=== PATIENT | female | born 1985 | race Caucasian/White ===

== ENCOUNTER 2019-09-11 17:05 | Emergency (ER) | payer BC, SELFPAY ==
--- NOTE | 2019-09-11 17:12 | ED.SYNCOPE ---
HPI - Syncope General Chief Complaint: Syncope Stated Complaint: fainted Time Seen by Provider: 09/11/19 17:12 Source: patient, EMS and RN notes reviewed Mode of arrival: EMS Limitations: no limitations History of Present Illness HPI narrative: patient was at home. She says that she had been out all day. Today it is extremely hot with the heat warning with real feel temperature close to 100. She has been playing around the pool today. But has taken very little oral fluids in. She told family she was feeling poorly felt like she was going to pass out and then did. She has been nauseated. She denies any alcohol day. MD complaint: felt faint and collapsed Onset (ago): hour(s) (2) Prodromal symptoms: lightheaded and nausea/vomiting Witnessed: Yes - by Bystander Context: during exertion Injuries sustained associated with event: none Current symptoms: lightheaded, nausea and weakness Treatments prior to arrival: IV fluids Related Data Home Medications Medication Instructions Recorded Confirmed norgestimate-ethinyl estradiol tablet 09/11/19 [Tri Femynor] Allergies Allergy/AdvReac Type Severity Reaction Status Date / Time No Known Allergies Allergy Verified 05/22/19 13:14 Review of Systems Constitutional: Constitutional: Reports weakness Eyes: Eyes: Reports no additional eye complaints Cardiovascular: Cardiovascular: Reports no additional cardiovascular complaints Respiratory: Respiratory: Reports no additional respiratory complaints Gastrointestinal: Gastrointestinal: Reports as per HPI Genitourinary: Genitourinary: Reports no additional female genitourinary complaints Musculoskeletal: Musculoskeletal: Reports no additional musculoskeletal complaints Integumentary/Breasts: Skin/Breast: Reports erythema (Sunburn) Neurologic: Reports as per HPI Psychiatric: Psychiatric: Reports no additional psychiatric complaints Endocrine: Endocrine: Reports no additional endocrine complaints Hematologic/Lymphatic: Hematologic/Lymphatic: Reports no additional hematologic/lymphatic complaints Allergic/Immunologic: Allergic/Immunologic: Reports no additional allergic/immunologic complaints [facility] Past Medical History Medical History Anxiety and depression Attention deficit disorder (ADD) in adult Irritable bowel syndrome with both constipation and diarrhea Vitamin D deficiency Social History Social History Social History: Lives with and 2 children, ages 2 and 4. Smoking status: Never smoker Alcohol intake: current Exam Const: General: healthy appearing, no acute distress and alert Nutritional Appearance: well nourished Orientation/consciousness: patient oriented x3 Other: Female nurse in room during examination. HENMT: Head: normal to inspection Ears: external ears normal General nose exam: Normal external nose present Face and sinus: normal facial exam Mouth: Yes lip normal Eyes: Conjunctivae: conjunctivae normal Pupils: Equal, round and reactive pupils present EOM: EOMs intact bilaterally Neck: Neck: normal visual inspection Resp: Effort & Inspection: normal respiratory effort Auscultation: clear to auscultation bilaterally Cardio: Rate: regular rate Rhythm: regular rhythm GI: Auscultation: normal bowel sounds Back/Spine/Pelvis: Back: no CVA tenderness Skin: Other: Sunburn 1st degree to exposed areas of body Neuro: General: patient oriented x3 and moves all extremities Speech: normal speech Extrem: General: normal to inspection and no clubbing, cyanosis or edema Psych: Appearance: grossly normal and well kempt Mental Status: mental status grossly normal Affect: normal affect Attitude: cooperative Thought content: Yes Normal thought content present Course Vital Signs Vital signs: Vital Signs Temperature 36.7 C 09/11/19 17:14 Pulse Rate 77 07/06
[2019-09-11 17:14] VITALS: BP 116/84; PULSE 77; RESP 16; TEMP 36.7; O2SAT 100
[2019-09-11] MEDS: SODIUM CHLORIDE 0.9% IV 1,000 ML 999 ML IV CONT (17:20)
[2019-09-11 17:30] LABS: Basophils Absolute Auto 0.04 K/mm3 (0.00-0.10); Basophils Percent Auto 0.4 % (0.0-1.0); Eosinophils Absolute Auto 0.12 K/mm3 (0.02-0.50); Eosinophils Percent Auto 1.3 % (1.0-6.0); Hematocrit 35.6 % (35.0-49.0); Hemoglobin 12.3 g/dL (12.0-15.0); Immature Granulocyte Absolute 0.03 K/mm3 (0.00-0.00); Immature Granulocyte Percent A 0.3 % (0.0-0.0); Lymphocytes Absolute Auto 2.67 K/mm3 (1.10-4.50); Lymphocytes Percent Auto 28.2 % (18.0-42.0); Mean Corpuscular HGB Conc 34.6 g/dL (32.0-36.0); Mean Corpuscular Hemoglobin 30.8 pg (27.0-31.0); Mean Corpuscular Volume 89.2 fL (78.0-102.0); Monocytes Absolute Auto 0.61 K/mm3 (0.10-0.90); Monocytes Percent Auto 6.4 % (2.0-11.0); Neutrophils Percent Auto 63.4 % (50.0-70.0); Platelet Count Result 235 K/mm3 (150-420); Red Blood Count 3.99 M/mm3 (4.20-5.40); Red Cell Distribution Width 11.9 % (11.6-14.4); White Blood Count 9.5 K/mm3 (4.8-10.8)
[2019-09-11 17:32] LABS: Appearance Urine Clear (Clear); Bilirubin Urine Negative (Negative); Color Urine Yellow (Yellow); Glucose Urine UA Negative (Negative); Ketones Urine Trace (Negative); Leukocyte Esterase Ur Negative LEU/UL (Negative); Nitrate Urine Negative (Negative); Protein Urine Negative (Negative); Specific Grav Ur >= 1.030 (1.010-1.020); Urobilinogen Urine 0.2 mg/dL (0.2-1.0); pH Urine 5.5 (5.0-8.0)
[2019-09-11 17:37] LABS: Add Urine Microscopic? YES; Bacteria Urine Trace /hpf; Blood Urine Trace-Intact (Negative); RBC Urine None seen /hpf (0-2); Squamous Epithelial Cell Urine Few /hpf (Few); WBC Urine None seen /hpf (0-3)
[2019-09-11 17:38] LABS: Mucus Urine Few /lpf
[2019-09-11 17:47] LABS: Alanine Aminotransferase 15 U/L (14-59); Alkaline Phosphatase 67 U/L (46-116); Anion Gap 7.9 mmol/L (7-16); Aspartate Amino Transferase 13 U/L (15-37); Bilirubin,Total 0.8 mg/dL (0.00-1.00); Blood Urea Nitrogen 14 mg/dL (7-18); Calcium 7.7 mg/dL (8.5-10.1); Carbon Dioxide 30 mmol/L (21-32); Chloride 106 mmol/L (98-108); Estimated Glomerular Filt Rate > 60; Glucose 86 mg/dL (70-99); Magnesium 1.8 mg/dL (1.8-2.4); Osmolality Calculated 289 mOsm/kg (285-295); Potassium 3.9 mmol/L (3.5-5.1); Sodium 140 mmol/L (136-145); Total Protein 6.2 g/dL (6.4-8.2)
[2019-09-11 18:35] VITALS: BP 116/74; PULSE 74; O2SAT 99
== END 2019-09-11 18:35 | disposition home or self-care (01) ==
PROVIDERS: Emergency Provider Emergency Medicine
DX: T67.5XXA Heat exhaustion, unspecified, initial encounter (principal)
CPT/HCPCS: 36415; 80053; 81001; 83735; 85025; 96360; 99283; J7030

== ENCOUNTER 2022-02-07 08:53 | Emergency (ER) | payer BC, SELFPAY ==
--- NOTE | 2022-02-07 08:54 | ED.URI ---
HPI - URI/Sore Throat General Chief Complaint: Upper Respiratory Infection Stated Complaint: throat fever aches headaches Time Seen by Provider: 02/07/22 08:54 Source: patient and RN notes reviewed History of Present Illness HPI Narrative: patient is a 36-year-old female who presents to urgent care with complaints of sore throat, body aches, headache, chills, fever. Patient states that it started yesterday. Denies any ill exposures at home. Patient has been taking Advil. No other acute complaints. No acute distress noted. Patient aware of the plan of care. Some parts of this dictation were generated by voice recognition software and may contain typographical and/or grammatical inaccuracies. Related Data Home Medications Medication Instructions Recorded Confirmed norgestimate-ethinyl estradiol tablet 09/11/19 12/23/21 0.18 mg/0.215mg/0.25mg-35 mcg(28)tablet (Tri Femynor) Allergies Allergy/AdvReac Type Severity Reaction Status Date / Time adhesive Allergy Unknown RASH Verified 02/07/22 09:18 Review of Systems Review of Systems: CONSTITUTIONAL: Reports of fever, chills EYES: Denies visual changes, redness, or discharge. ENT: Denies rhinorrhea, congestion, otalgia. Reports of sore throat CARDIOVASCULAR: Denies chest pain, palpitations, or edema. RESPIRATORY: Denies cough or dyspnea. GASTROINTESTINAL: Denies abdominal pain, nausea, vomiting, or diarrhea. GENITOURINARY: Denies dysuria or hematuria. SKIN: Denies rash or itching. MUSCULOSKELETAL: Denies back pain, joint pain. Reports body aches NEUROLOGIC: Denies headache, numbness, or weakness. All other systems reviewed are negative, except as documented in HPI. [facility] Past Medical History Medical History Anxiety and depression Attention deficit disorder (ADD) in adult Gestational diabetes Irritable bowel syndrome with both constipation and diarrhea Vitamin D deficiency Surgical History Surgical History Hx of appendectomy (~2017) Hx of section (~2016) Hx of section (~2018) Social History Social History Social History: Lives with and 2 children, ages 2 and 4. Smoking status: Never smoker Alcohol intake: current Alcohol use details: rarely Substance use: never Substance use type: does not use Gender identity (if verbalized by the patient): Female Sexual Orientation (if Verbalized by the Patient): Straight or Heterosexual Agree to blood products: Yes Comments At the time of my signature, I reviewed and agree with the nursing past medical, surgical, social, and family history. There is no relevant family history pertinent to the patient complaint. Exam Narrative: GENERAL: This is a well-nourished, well-developed patient. Appears fatigued HEAD: normocephalic, atraumatic. EYES: PERRL. Sclera clear/white. Vision is grossly intact. EARS: External ears normal, auditory canals clear and without drainage, TMs normal without perforation. Hearing grossly intact. NOSE: External nose normal with no obvious nasal discharge, nares without redness, clear rhinorrhea THROAT: Mucous membranes moist, mild erythema to posterior oropharynx with moderate postnasal drainage. Mild bilateral erythema neck tonsils with slight edema NECK: Neck supple, non-tender mild bilateral submandibular lymphadenopathy CARDIOVASCULAR: Regular rate and rhythm without murmurs, gallops, or rubs. RESPIRATORY: Clear to auscultation. Breath sounds equal bilaterally. No wheezes, rales, or rhonchi. SKIN: warm, intact with no suspicious lesions or rash, good texture and turgor. NEURO: awake, alert, and oriented to person, place and time. There were no obvious focal neurologic abnormalities. EXTREMITIES: No clubbing, cyanosis, or edema. Course Course Level of Care: [facility] Care Visit Vi
[2022-02-07 09:17] VITALS: BP 114/67; PULSE 99; RESP 18; TEMP 37; O2SAT 98
== END 2022-02-07 09:39 | disposition home or self-care (01) ==
PROVIDERS: Emergency Provider Nurse Practitioner Family; PCP Nurse Practitioner
DX: J02.9 Acute pharyngitis, unspecified (principal); F98.8 Other specified behavioral and emotional disorders with onset usually occurring in childhood and adolescence; F41.9 Anxiety disorder, unspecified; F32.A Depression, unspecified
CPT/HCPCS: 87081; 87147; 99213; G0463

== ENCOUNTER 2022-06-28 19:49 | Emergency (ER) | payer BC, SELFPAY ==
--- NOTE | ~2022-06-28 | CT_ITS ---
CT of the Abdomen and Pelvis: Indication: Abdominal pain Technique: 2.5 mm axial scans were obtained through the abdomen and pelvis following intravenous adm inistration of 100 cc of Omnipaque 350. Dose reduction technique was used on this scan by utilizing a utomated exposure control and iterative reconstruction technique. The dose-length product (DLP) was 5 96.36 mGy-cm. COMPARISON: 05/21/2016 Findings: Scans through the lung bases are unremarkable. The liver, spleen, pancreas, adrenals and kidneys are within normal limits. Multiple gallstones are p resent. No evidence of aortic aneurysm. No lymphadenopathy. No bowel obstruction or bowel wall thickening. There is no evidence to suggest acute appendicitis. Images through the pelvis were performed. Urinary bladder unremarkable. Probable small uterine fibroi ds present. No ascites. Impression: Cholelithiasis. If there is clinical concern for acute cholecystitis, then HIDA scan is recommended f or further evaluation. Small uterine fibroids. Reviewed, dictated and finalized at location . Impression: Cholelithiasis. If there is clinical concern for acute cholecystitis, then HIDA scan is recommended for further evaluation. Small uterine fibroids.
[2022-06-28 19:53] VITALS: BP 153/103; PULSE 73; RESP 16; TEMP 36.1; O2SAT 100
[2022-06-28 20:40] VITALS: BP 128/84; PULSE 72; RESP 14; O2SAT 100
[2022-06-28 20:44] LABS: Basophils Percent Auto 0.5 % (0.2-1.2); Eosinophils Absolute Auto 0.2 K/mm3 (0-0.3); Eosinophils Percent Auto 2.5 % (0-4.4); Hematocrit 38.2 % (37.0-47.0); Hemoglobin 12.6 g/dL (12.0-15.0); Immature Granulocyte Absolute 0.02 K/mm3 (0.00-0.031); Immature Granulocyte Percent A 0.3 % (0-0.5); Lymphocytes Absolute Auto 2.98 K/mm3 (0.9-3.2); Lymphocytes Percent Auto 37.3 % (18.3-44.2); Mean Corpuscular Hemoglobin 29.2 pg (26-34); Mean Corpuscular Volume 88.6 fl (80-100); Mean Platelet Volume 9.1 fl (7.4-10.4); Monocytes Absolute Auto 0.7 K/mm3 (0.1-0.6); Monocytes Percent Auto 8.6 % (2.6-8.5); Neutrophils Absolute Auto 4.1 K/mm3 (1.3-6.7); Neutrophils Percent Auto 50.8 % (45.5-73.1); Platelet Count Result 256 k/mm3 (150-375); Red Blood Count 4.31 M/mm3 (4.2-5.4)
--- NOTE | 2022-06-28 20:48 | ED.ABDPAIN ---
HPI - Abdominal Pain General Chief Complaint: Abdominal Pain <Maxx Interiano MD - Last Filed: 07/02/22 07:12> Stated Complaint: gallbladder attack <Maxx Interiano MD - Last Filed: 07/02/22 07:12> Time Seen by Provider: 06/28/22 20:13 <Maxx Interiano MD - Last Filed: 07/02/22 07:12> History of Present Illness HPI narrative: 36-year-old female with history of cholelithiasis presented the emergency department for evaluation of worsening right upper quadrant and epigastric pain. Patient states that back in 2017 she was diagnosed with cholelithiasis and was supposed to have her gallbladder out. Prior to having her gallbladder out patient did have a acute appendicitis and had an appendectomy. Patient states she did not have significant right upper quadrant pain after having the appendectomy. Patient reports over the last 3 weeks she has had 4 episodes of epigastric and right upper quadrant pain. Patient states symptoms are typically about 5 hours in length but then did resolve after treatment with home medications. Patient reports that this evening approximately 5 PM she had 10 sounds epigastric right upper quadrant pain that does radiate to her back. Patient does have associated nausea vomiting. Patient denies any constipation or diarrhea with this. Patient does have a prior history of C-sections x2 as well. <Maxx Interiano MD - Last Filed: 07/02/22 07:12> Related Data Home Medications: Home Medications Medication Instructions Recorded Confirmed norgestimate-ethinyl estradiol tablet 09/11/19 06/26/22 0.18 mg/0.215mg/0.25mg-35 mcg(28)tablet (Tri Femynor) fluoxetine 20 mg capsule 20 mg PO DAILY 06/26/22 06/26/22 <Maxx Interiano MD - Last Filed: 07/02/22 07:12> Allergies/Adverse Reactions: Allergies Allergy/AdvReac Type Severity Reaction Status Date / Time adhesive Allergy Unknown RASH Verified 06/28/22 20:39 <Maxx Interiano MD - Last Filed: 07/02/22 07:12> Review of Systems Review of Systems: All systems reviewed & are unremarkable except as noted in HPI and below <Maxx Interiano MD - Last Filed: 07/02/22 07:12> [facility] Past Medical History Medical History: Medical History Anxiety and depression Attention deficit disorder (ADD) in adult Gestational diabetes Irritable bowel syndrome with both constipation and diarrhea Vitamin D deficiency <Maxx Interiano MD - Last Filed: 07/02/22 07:12> Surgical History Surgical History: Surgical History Hx of appendectomy (~2017) Hx of section (~2016) Hx of section (~2018) <Maxx Interiano MD - Last Filed: 07/02/22 07:12> Social History Social History: Social History Social History: Lives with and 2 children, ages 2 and 4. Smoking status: Never smoker Alcohol intake: current Alcohol use details: rarely Substance use: never Substance use type: does not use Lack of Transportation: No Lack of Food: Never True Current Housing: I Have Housing Concerned About Future Housing: No Difficulty Paying Gas/Electric Bills: No Difficulty Paying for Meds: No Currently Unemployed: No Education: Associate Degree Difficulty w/ Childcare or Family Care: No Living arrangements: with family Occupation/Education: occupation Gender identity (if verbalized by the patient): Female Sexual Orientation (if Verbalized by the Patient): Straight or Heterosexual Agree to blood products: Yes <Maxx Interiano MD - Last Filed: 07/02/22 07:12> Exam Narrative: APPEARANCE: Well appearing, no pain, no distress, well-nourished. HEAD: normocephalic, atraumatic. EYES: PERRLA/EOMI, conjunctivae clear. NOSE: Normal no drainage NECK: Supple. No adenopathy, no masses. RESPIRATORY: Airway patent, respirations
[2022-06-28 20:55] LABS: Alanine Aminotransferase 15 U/L (6-35); Albumin Level 4.1 g/dL (3.5-5.1); Alkaline Phosphatase 65 U/L (38-126); Anion Gap 7 mmol/L (8-16); Aspartate Amino Transferase 23 U/L (14-36); Bilirubin,Total 0.8 mg/dL (0.2-1.3); Blood Urea Nitrogen 13 mg/dL (7-17); Calcium 8.9 mg/dL (8.4-10.2); Carbon Dioxide 27 mmol/L (22-30); Chloride 102 mmol/L (98-107); Estimated CRCL calculation 93 ml/min; Estimated Glomerular Filt Rate > 60; Glucose 107 mg/dL (65-110); Lipase 39 U/L (23-300); Potassium 3.6 mmol/L (3.4-5.0); Sodium 136 mmol/L (137-145)
[2022-06-28 20:56] LABS: Lactic Acid Reflex 0.8 mmol/L (0.7-2.0)
[2022-06-28] MEDS: HYDROmorphone HCL INJ (*CRX) 1 MG/ML SYR IV PUSH ×2 (21:17→22:25)
[2022-06-28] MEDS: ONDANSETRON INJ 4 MG/2 ML VIAL IV PUSH (21:17)
[2022-06-28] MEDS: SODIUM CHLORIDE 0.9% IV 1,000 ML 999 ML IV CONT (21:18)
[2022-06-28 21:20] VITALS: BP 124/82; PULSE 70; RESP 17; O2SAT 100
[2022-06-28 21:43] LABS: Appearance Urine Clear (Clear); Bilirubin Urine Negative (Negative); Blood Urine Negative (Negative); Color Urine Yellow (Yellow); Glucose Urine UA Negative (Negative); Ketones Urine Negative (Negative); Leukocyte Esterase Ur Negative LEU/UL (Negative); Nitrate Urine Negative (Negative); Protein Urine Negative (Negative); Specific Grav Ur 1.023 (1.001-1.035); Urobilinogen Urine 0.2 mg/dL (<2.0); pH Urine 5.5 (5.0-9.0)
[2022-06-28 21:45] LABS: Add Urine Microscopic? NO
[2022-06-28 22:27] VITALS: BP 126/80; PULSE 93; RESP 14; O2SAT 98
[2022-06-28] MEDS: KETOROLAC 15 MG/ML VIAL (*BKC) IV PUSH (23:16)
[2022-06-28 23:24] VITALS: BP 124/68; PULSE 98; RESP 14; O2SAT 99
[2022-06-29 00:56] VITALS: BP 118/76; PULSE 90; RESP 15; O2SAT 99
== END 2022-06-29 00:59 | disposition home or self-care (01) ==
PROVIDERS: Emergency Medicine; Emergency Provider Emergency Medicine; PCP Nurse Practitioner
DX: K80.20 Calculus of gallbladder without cholecystitis without obstruction (principal)
CPT/HCPCS: 36415; 74177; 80053; 81003; 81025; 83605; 83690; 85025; 96361; 96365; 96375; 96376; 99284; J0131; J1170; J1885; J2405; J7030; Q9967

== ENCOUNTER 2022-07-06 19:05 | Emergency (ER) | payer BC, SELFPAY ==
[2022-07-06 19:37] VITALS: BP 132/87; PULSE 80; RESP 16; TEMP 36.6; O2SAT 100
[2022-07-06 22:38] LABS: Basophils Absolute Auto 0.1 K/mm3 (0.0-0.1); Basophils Percent Auto 0.9 % (0.2-1.2); Eosinophils Absolute Auto 0.3 K/mm3 (0-0.3); Eosinophils Percent Auto 3.3 % (0-4.4); Hematocrit 38.5 % (37.0-47.0); Hemoglobin 12.9 g/dL (12.0-15.0); Immature Granulocyte Absolute 0.02 K/mm3 (0.00-0.031); Immature Granulocyte Percent A 0.3 % (0-0.5); Lymphocytes Absolute Auto 3.38 K/mm3 (0.9-3.2); Lymphocytes Percent Auto 42.4 % (18.3-44.2); Mean Corpuscular HGB Conc 33.5 g/dl (32-36); Mean Corpuscular Hemoglobin 29.3 pg (26-34); Mean Corpuscular Volume 87.5 fl (80-100); Mean Platelet Volume 9.1 fl (7.4-10.4); Monocytes Absolute Auto 0.7 K/mm3 (0.1-0.6); Monocytes Percent Auto 8.5 % (2.6-8.5); Neutrophils Absolute Auto 3.6 K/mm3 (1.3-6.7); Neutrophils Percent Auto 44.6 % (45.5-73.1); Platelet Count Result 303 k/mm3 (150-375)
[2022-07-06 22:41] LABS: Appearance Urine Clear (Clear); Bilirubin Urine Negative (Negative); Blood Urine Negative (Negative); Color Urine Yellow (Yellow); Glucose Urine UA Negative (Negative); Ketones Urine Negative (Negative); Leukocyte Esterase Ur Negative LEU/UL (Negative); Nitrate Urine Negative (Negative); Protein Urine Negative (Negative); Specific Grav Ur 1.015 (1.001-1.035); Urobilinogen Urine 0.2 mg/dL (<2.0); pH Urine 5.5 (5.0-9.0)
[2022-07-06 22:47] LABS: Alanine Aminotransferase 24 U/L (6-35); Albumin Level 4.3 g/dL (3.5-5.1); Alkaline Phosphatase 82 U/L (38-126); Anion Gap 6 mmol/L (8-16); Aspartate Amino Transferase 27 U/L (14-36); Bilirubin,Total 1.3 mg/dL (0.2-1.3); Blood Urea Nitrogen 10 mg/dL (7-17); Carbon Dioxide 28 mmol/L (22-30); Chloride 103 mmol/L (98-107); Estimated CRCL calculation 93 ml/min; Estimated Glomerular Filt Rate > 60; Glucose 88 mg/dL (65-110); Lipase 36 U/L (23-300); Potassium 3.6 mmol/L (3.4-5.0); Sodium 137 mmol/L (137-145)
[2022-07-06 22:59] LABS: Add Urine Microscopic? NO
[2022-07-07] VITALS (19 sets, daily range): BP systolic 116–126; BP diastolic 81–95; PULSE 70; RESP 18; TEMP 36.6; O2SAT 98–100
[2022-07-07] MEDS: HYDROcodone/acetaminophen (*CRX) 5-325 MG TABLET 1 TAB PO (00:25)
[2022-07-07] MEDS: ONDANSETRON INJ 4 MG/2 ML VIAL IV PUSH (00:25)
[2022-07-07] MEDS: IBUPROFEN 400 MG TABLET 800 MG PO (00:25)
[2022-07-07] MEDS: SODIUM CHLORIDE 0.9% IV 1,000 ML 999 ML IV CONT (00:25)
--- NOTE | 2022-07-07 00:52 | ED.GENADULT ---
HPI - General Adult General Chief complaint: Abdominal Pain Stated complaint: I'm having a gall bladder attack Time Seen by Provider: 07/07/22 00:03 History of Present Illness HPI narrative: A 36-year-old female with history of biliary colic presenting with right upper quadrant abdominal pain. Patient was seen here in our emergency department On June 28. She was diagnosed with biliary colic and discharged with symptomatic treatment. she was discharged with Motrin Tylenol and Aniwa for breakthrough pain. Patient had a gallbladder attack today and take Motrin and Tylenol. This did not relieve her pain. She did not take the Aniwa because she thought it was for nausea. Patient denies fever, chills, nausea, vomiting chest pain difficulty breathing. She has an appointment to see surgery on the . Related Data Home Medications Medication Instructions Recorded Confirmed norgestimate-ethinyl estradiol tablet 09/11/19 06/26/22 0.18 mg/0.215mg/0.25mg-35 mcg(28)tablet (Tri Femynor) fluoxetine 20 mg capsule 20 mg PO DAILY 06/26/22 06/26/22 Allergies Allergy/AdvReac Type Severity Reaction Status Date / Time adhesive Allergy Unknown RASH Verified 07/06/22 19:06 [facility] Past Medical History Medical History Anxiety and depression Attention deficit disorder (ADD) in adult Gestational diabetes Irritable bowel syndrome with both constipation and diarrhea Vitamin D deficiency Surgical History Surgical History Hx of appendectomy (~2017) Hx of section (~2016) Hx of section (~2018) Social History Social History Social History: Lives with and 2 children, ages 2 and 4. Smoking status: Never smoker Alcohol intake: current Alcohol use details: rarely Substance use: never Substance use type: does not use Lack of Transportation: No Lack of Food: Never True Current Housing: I Have Housing Concerned About Future Housing: No Difficulty Paying Gas/Electric Bills: No Difficulty Paying for Meds: No Currently Unemployed: No Education: Associate Degree Difficulty w/ Childcare or Family Care: No Living arrangements: with family Occupation/Education: occupation Gender identity (if verbalized by the patient): Female Sexual Orientation (if Verbalized by the Patient): Straight or Heterosexual Agree to blood products: Yes Exam Narrative: APPEARANCE: No apparent distress. Head: atraumatic. EYES: EOMI, NOSE: Atraumatic NECK: Trachea midline RESPIRATORY: No increased rate of breathing CARDIOVASCULAR: RRR, ABDOMINAL: mild tenderness in the right upper quadrant epigastric area. No guarding no rebound MUSCULOSKELETAl: No obvious deformities NEURO: Alert. Moving 4/4 extremities SKIN:: Warm, dry. Normal color PSYCHIATRIC: Normal affect Course Vital Signs Vital signs: Vital Signs Temperature 97.9 F 07/06/22 19:37 Pulse Rate 80 07/06/22 19:37 Respiratory Rate 16 07/06/22 19:37 Blood Pressure 132/87 07/06/22 19:37 Pulse Oximetry 100 07/06/22 19:37 Oxygen Delivery Room Air 07/06/22 19:37 Temperature 97.9 F 07/06/22 19:37 Pulse Rate 80 07/06/22 19:37 Respiratory Rate 16 07/06/22 19:37 Blood Pressure 132/87 07/06/22 19:37 Pulse Oximetry 100 07/06/22 19:37 Oxygen Delivery Room Air 07/06/22 19:37 Medical Decision Making MDM Narrative Medical decision making narrative: -Presentation: 36-year-old female presenting with biliary colic. She did not take her prescribed Aniwa because she misunderstood its use. Lab work, symptomatic treatment will be provided. if the patient's pain is controlled she will be discharged to follow-up with her surgeon at the scheduled appointment. -DDX includes but is not limited to: Biliary colic, cholecystitis -Co-mo
[2022-07-07] MEDS: ACETAMINOPHEN 325 MG TABLET 650 MG PO (01:20)
[2022-07-07] MEDS: FAMOTIDINE 20 MG/2 ML VIAL IV PUSH (01:57)
[2022-07-07] MEDS: HYDROmorphone HCL INJ (*CRX) 1 MG/ML SYR 0.5 MG IV PUSH (02:23)
== END 2022-07-07 02:24 | disposition home or self-care (01) ==
PROVIDERS: Emergency Provider Emergency Medicine; PCP Nurse Practitioner
DX: K80.50 Calculus of bile duct without cholangitis or cholecystitis without obstruction (principal); K58.2 Mixed irritable bowel syndrome; E55.9 Vitamin D deficiency, unspecified; F32.A Depression, unspecified; F41.9 Anxiety disorder, unspecified; F98.8 Other specified behavioral and emotional disorders with onset usually occurring in childhood and adolescence
CPT/HCPCS: 36415; 80053; 81003; 81025; 83690; 85025; 96361; 96374; 96375; 99284; A9270; J1170; J2405; J7030

== ENCOUNTER 2022-07-28 09:21 | Outpatient (CLI) | payer BC, SELFPAY ==
[2022-07-28 10:30] LABS: Amylase 53 U/L (30-110)
== END 2022-07-28 09:22 | disposition home or self-care (01) ==
LOC: ANHSURGERY 09:31
PROVIDERS: PCP Nurse Practitioner; Visit Provider Surgery
DX: K80.10 Calculus of gallbladder with chronic cholecystitis without obstruction (principal); Z01.818 Encounter for other preprocedural examination
CPT/HCPCS: 36415; 82150; 86850; 86900; 86901

== ENCOUNTER 2022-07-31 02:47 | Day surgery (SDC) | payer BC, SELFPAY ==
[2022-07-22 13:23] VITALS: BMI 27.4
--- NOTE | 2022-07-22 13:27 | PC.NURSE ---
Report to the Outpatient Waiting Room, entrance under the green pavilion located off [facility], at time 11:00 on date 07/31/22. Planned Procedure Time: 1:00. Time changes happen often and if your time is changed the preop area will call you the afternoon before. - You and your visitor will be asked to self-screen and do not enter if you have any COVID symptoms. - A mask is optional within the hospital at this time. Patients may have clear liquids (water, carbonated beverages, clear teas, apple juice) until 3 hours prior to surgery (10:00) with a maximum of 20 ounces. - No food from midnight until time of surgery Take the following medications with a SIP of water the morning of surgery: FLUOXETINE, PAIN PILL IF NEEDED DO NOT STOP ANY OF YOUR OTHER PRESCRIPTION MEDICATIONS PRIOR TO SURGERY EXCEPT THE FOLLOWING Medications to discontinue per physician: N/A Date to take last dose: N/A Please no make-up, nail qatari, hairspray, perfume, deodorant, or body powder the day of surgery. No jewelry (including any body piercings) or valuables the day of surgery, leave them at home. Please take a shower or bath the night before, or the morning of, surgery with an antibacterial soap (HIBICLENS). Wear comfortable, loose fitting clothing. - Jewelry must be removed prior to entering the operating room. Rings and piercings that are not removed may be cut off. - The hospital will not accept responsibility for valuables. - Please leave all valuables, including medications, at home the day of surgery. If you are going home after surgery, a licensed company tanker truck driver must drive you home. - NO public transportation without another adult if you receive anesthesia. - We recommend that an adult stay with you for 24 hours following discharge. - We also recommend that you do not drive, make important decision, drink alcoholic beverages, or take any drugs that were not prescribed by your health care provider for at least 24 hours after your discharge time. Follow any additional instructions given to you from your surgeon. If you or anyone in your household have experienced Covid symptoms in the past week, please notify your surgeon or the nurse liaison at the phone number below for possible testing. Telephone instructions given to PT - DA ISABEL and asked if any additional questions and then verbalized understanding. Patient advised to call surgeon office or pre surgery nurse liaison [phone] if any additional questions.
[2022-07-31] VITALS (16 sets, daily range): BP systolic 100–174; BP diastolic 61–115; PULSE 71–154; RESP 12–22; TEMP 36.1–36.6; O2SAT 94–100
[2022-07-31] MEDS: ACETAMINOPHEN 500 MG TABLET 1000 MG PO (06:45)
[2022-07-31] MEDS: KETOROLAC 15 MG/ML VIAL (*BKC) IV PUSH (06:45)
[2022-07-31] MEDS: LACTATED RINGERS 1,000 ML 30 ML IV CONT ×2 (06:45→09:48)
--- NOTE | 2022-07-31 06:46 | WPDANESEPPF ---
Anes - Initial Pre Proc Eval Procedure: Operation Date: 07/31/22 07:30 Proposed Procedures p Laparoscopic Cholecystectomy - Maria A Bauman MD Date/Time: 07/31/22 06:46 Surgeon: Maria A Bauman MD Pre Op Diagnosis: cholecystitis with cholelithiasis Patient Data Age: 36 Gender: F Height: 1.6 m Weight: 70.3 kg Allergies Allergy/AdvReac Type Severity Reaction Status Date / Time adhesive Allergy Unknown RASH Verified 07/22/22 13:21 Home Medications Medication Instructions Recorded Confirmed Type norgestimate-ethinyl estradiol 1 tablet PO DAILY 09/11/19 07/22/22 History 0.18 mg/0.215mg/0.25mg-35 mcg(28)tablet (Tri Femynor) fluoxetine 20 mg capsule 20 mg PO DAILY 06/26/22 07/22/22 History acetaminophen 500 mg tablet 1,000 mg PO TID PRN ritu 7 days #42 06/29/22 07/22/22 Rx tabs ibuprofen 800 mg tablet 800 mg PO TID PRN pain 7 days #21 06/29/22 07/22/22 Rx tabs ondansetron 4 mg disintegrating 4 mg PO Q8H PRN nausea and 06/29/22 07/22/22 Rx tablet vomiting #30 tabs dextroamphetamine-amphetamine ER 30 mg PO DAILY #30 caps 06/30/22 07/22/22 Rx 30 mg 24hr capsule,extend release (Adderall XR) hydrocodone 7.5 mg-acetaminophen 1 tablet PO Q4H PRN pain #20 tabs 07/08/22 07/22/22 Rx 325 mg tablet Patient hx anesthesia problems: none Family hx anesthesia problems: none Results Review: All pre-operative results and documents have been reviewed as part of the pre-operative evaluation. [facility] Past Medical History Medical History Anxiety and depression Attention deficit disorder (ADD) in adult Gestational diabetes Irritable bowel syndrome with both constipation and diarrhea Vitamin D deficiency Surgical History Surgical History Hx of appendectomy (~2017) Hx of section (~2015) x2 2015, 2017 Family History Family History Father Cerebrovascular accident Diabetes mellitus Social History Social History Social History: Lives with and 2 children, ages 2 and 4. 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[employer] Gender identity (if verbalized by the patient): Female Sexual Orientation (if Verbalized by the Patient): Straight or Heterosexual Spiritual care concerns: No Agree to blood products: Yes Anes - Eval Final PreProcedure Day of Procedure 07/31/22 06:46 Patient weight: overweight Heart: regular rate and rhythm Lungs: clear to auscultation Airway: Mallampati scale class II Neurological: alert and oriented Last oral intake: >/= 8 hours ASA classification: II Emergent: no Anesthetic plan: proceed Anesthesia type and monitoring: general ETT and standard monitoring Results Review: All pre-operative results and documents have been reviewed as part of the pre-operative evaluation. Informed Consent: The patient's anesthetic plan and its attendant risks and benefits were discussed with the patient/family/POA. Questions were solicited and answers provided to the satisfaction of the patient/family/POA.
--- NOTE | 2022-07-31 07:16 | WPDHPUPDATE1 ---
History and Physical Update Update Date/Time: 07/31/22 07:16 History and Physical has been reviewed, including an updated exam of the patient. There are NO changes in the patient's condition. Risks, benefits, and alternatives have been discussed and questions answered. Patient agrees to proceed with procedure.
[2022-07-31] MEDS: ceFAZolin 2 GM/D5W 50 ML 2 GM/50 ML BAG IVPB (07:32)
[2022-07-31] MEDS: BUPIVACAINE/EPINEPHRINE 0.5% 50 ML VIAL 30 ML INFILTRATE (08:01)
--- NOTE | 2022-07-31 08:36 | P.OP_ITS ---
Procedure Note - Detailed Date of Procedure 07/31/22 Pre-op Diagnosis cholecystitis with cholelithiasis Post-op Diagnosis Same Procedure Performed Laparoscopic cholecystectomy Surgeon Maria A Bauman MD Anesthesia General Indications 36-year-old female presented to the office complaining of postprandial right up per quadrant abdominal pain associated with nausea and vomiting. Workup including imaging significant for cholecystitis, cholelithiasis. Findings Cholecystitis with cholelithiasis Description of Procedure The patient was taken to the operating room placed in the supine position. After adequate induction of general anesthesia, the patient was prepped and draped in normal sterile fashion. A time-out was then performed to verify the patient's identity as well as the procedure being performed. I then made a 5 mm incision in the infraumbilical region. Through this, a Veress needle was placed into the peritoneal cavity and CO2 gas was then insufflated. After adequate pneumoperitoneum was achieved, the Veress needle was removed and a 5 mm optiview trocar was placed through this incision under direct visualization. I then placed the laparoscope through this trocar site and under direct visualization placed a further 12 mm subxiphoid port as well as 2 additional 5 mm ports in the right upper abdomen. The gallbladder was then identified and was noted to be moderately inflamed, distended, and full of gallstones. I was able to place a grasper at the dome of the gallbladder and this was retracted anterior and cephalad up over the liver. A 2nd retractor was then placed at the infundibulum and retracted laterally, this allowed visualization of the triangle of Calot. I then was able to visualize the cystic duct in its entirety from its proximal insertion into the gallbladder, to its distal junction with the common hepatic/common bile duct junction. At this point, I carefully skeletonized the proximal cystic duct with the [place] dissector. I then clipped and transected the proximal cystic duct. Next I visualized the cystic artery. Again the artery was skeletonized, clipped, and transected. I then used the Bovie cautery to take down the peritoneal attachments of the gallbladder off the liver bed. Once the gallbladder specimen was completely detached, an endo-pouch was placed through the 12 mm port site. I then placed the gallbladder specimen into the Endo pouch and removed the endo-pouch from the 12 mm port site. The specimen will now be sent to pathology for further review. I then copiously irrigated the right upper quadrant. Some mild oozing was noted in the liver bed and this was controlled with the bovie cautery. Hemostasis was noted in the liver bed, the clips were noted to be in good position on both the cystic duct stump and the cystic artery stump. No other pathology was noted in the right upper quadrant. I then moved the laparoscope to the subxiphoid port. No iatrogenic injury or other pathology was noted in the lower abdomen. I then closed the 12 mm trocar site under direct visualization using the Butch cone and 0 Vicryl suture. At this point, the abdomen was desufflated and all ports removed. All port sites were then closed with 4.O Monocryl subcuticular sutures. Dermabond was placed on each incision. The patient tolerated the procedure well, was extubated in the operating room postoperative and will be transferred to the recovery room in stable condition Estimated Blood Loss 5 Drains No Packing No Pathology Yes Complications No immediate complications Condition Stable Disposition PACU [facility] Billing Surgery - Charge Forward: Surgery Billing
[2022-07-31] MEDS: MEPERIDINE HCL INJ (*CRX) 50 MG/ML AMPUL 25 MG IV PUSH (09:09)
[2022-07-31] MEDS: fentaNYL CITRATE INJ (*CRX) 100 MCG/2 ML VIAL 25 MCG IV PUSH ×8 (09:11→09:52)
[2022-07-31] MEDS: METOPROLOL TARTRATE INJ 5 MG/5 ML VIAL IV PUSH (10:08)
[2022-07-31] MEDS: oxyCODONE HCL (*CRX) 5 MG TAB IR PO (10:44)
[2022-07-31] MEDS: ONDANSETRON INJ 4 MG/2 ML VIAL IV PUSH (10:52)
[2022-07-31] MEDS: HYDROmorphone HCL INJ (*CRX) 1 MG/ML SYR 0.5 MG IV PUSH ×4 (11:26→12:00)
== END 2022-07-31 12:12 | disposition home or self-care (01) ==
PROVIDERS: PCP Nurse Practitioner; Visit Provider Surgery
PROC: 0FT44ZZ Resection of Gallbladder, Percutaneous Endoscopic Approach (ICD-10-PCS; CPT 47562; principal; 2022-07-31 07:30)
DX: K80.10 Calculus of gallbladder with chronic cholecystitis without obstruction (principal); F41.8 Other specified anxiety disorders
CPT/HCPCS: 47562; 88304; A9270; J0690; J1100; J1170; J1885; J2175; J2250; J2405; J2704; J3010; J7030; J7120

== ENCOUNTER 2022-11-19 09:45 | Outpatient (CLI) | payer BC, SELFPAY ==
--- NOTE | 2022-11-27 18:15 | WPDHOMESLEEP ---
Sleep Study - Home Unattended Date of Study: 11/19/22 Ordering Provider: KAREN Armstrong Interpreting Provider: Melba Rush MD Home Sleep Study Type: Watch PAT Height: 1.6 m Weight: 71.668 kg Body Mass Index: 28.0 Neck Circumference (inches): 13 [place]: 12 Reason for Sleep Study Hypersomnolence Sleep History Dagmar Carrasco is a 37-year-old woman with excessive daytime sleepiness. She has had night sweats intermittently for the last 2 years. She wakes up during the night and has excessive daytime sleepiness. She Never awakens from sleep short of breath. She never wakes at night with heartburn, belching or coughing.??She never snores, never snores loudly enough that others complain. She rarely has trouble sleeping when she has a cold. She never wakes up gasping for breath during the night. She never has breathing problems at night. She frequently sweats excessively at night. She never notices her heart pounding or beating irregularly during the night. She rarely falls asleep during the day. She never falls asleep involuntarily, never falls asleep while driving. She never experiences loss of muscle tone with strong emotion. She never feels paralyzed on waking or falling asleep. She never experiences vivid dreams upon waking or falling asleep. She never feels afraid of going to sleep. She Occasionally has nightmares. She occasional recalls her dreams. She frequently has thoughts racing through her mind. She occasionally feels sad or depressed. She frequently feels anxiety. She never notices parts of her body jerk. She never kicks during the night. She never feels crawling or aching feelings in her legs. She never feels leg pain at night. She never grinds her teeth, and never has morning jaw pain. She never feels bothered by pain during the day, never awakened by pain during the night. She never wakes up feeling stiff in the morning, never wakes feeling sore or achy in the morning. She rarely wakes up with pain in her neck, spine, or joints. She frequently has daytime difficulties at work due to excessive sleepiness. 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 She has frequent fatigue. She has frequent concentration difficulties. Normal bedtime is 8:30 p.m. , usually falling asleep within a few minutes. She typically gets about 8 hours of sleep per night. Her wake time is 4:00 a.m.. She wakes often in the night, between 5 and 10 times during a typical night. These awakenings last only a few minutes each time. These awakenings occur in the middle of the night. She tries to reposition and return to sleep. On weekends she does not wake up as early. Her bedtime awakened is 9:00 p.m. and she will sleep as late as 7:30 a.m.. Sometimes she takes naps in the afternoon or evening. A short nap lasting 10-15 minute is not refreshing. She is usually drowsy for 3 hours or longer. She feels better in the evening compared to other times of day. Habits:??Tobacco: never smoked Caffeine: 1 soda per day. Alcohol: social alcohol Recreational substances: gummies at night occasionally PMFSH Past Medical History Medical History Anxiety and depression Attention deficit disorder (ADD) in adult Calculus of gallbladder Cholecystitis with cholelithiasis Chronic cholecystitis with calculus Gestational diabetes Hyperhidrosis Hyperlipidemia Hypersomnia, unspecified Irritable bowel syndrome with both constipation and diarrhea Night sweats Night sweats Periumbilical abdominal pain Vitamin D deficiency Surgical History Surgical History History of laparoscopic cholecystectomy 07/31/2022 Hx of appendectomy (~2017) Hx of section (~2016) x2 2017 Family History Family History Father Cerebrovascular accident Diabetes mellitus Other Alcoholism aunt
[2022-11-29 15:46] VITALS: BMI 28.0
== END 2022-11-20 13:02 | disposition home or self-care (01) ==
LOC: ANHCSM 09:45
PROVIDERS: PCP Nurse Practitioner; Visit Provider Physician Assistant
DX: G47.10 Hypersomnia, unspecified (principal); R06.83 Snoring
CPT/HCPCS: 95800

== ENCOUNTER 2023-09-20 08:54 | Emergency (ER) | payer BC, SELFPAY ==
[2023-09-20 09:02] VITALS: BP 130/90; PULSE 95; RESP 16; TEMP 36.9; O2SAT 100
[2023-09-20 09:10] LABS: EDUAAPPEAR Clear; EDUABILI Negative; EDUABLOOD 2+; EDUACOLOR1 Yellow; EDUAGLUCOSE Negative; EDUAKETONE Negative; EDUALEUKO Negative; EDUANITRATE Negative; EDUAPROTEIN Negative; EDUAUROBILI 0.2
--- NOTE | 2023-09-20 09:15 | ED.FEMALEGU ---
HPI - Female Genitourinary General Chief complaint: Urogenital-Female Stated complaint: Uti Symptoms Time Seen by Provider: 09/20/23 09:03 Source: patient and RN notes reviewed Mode of arrival: ambulatory Limitations: no limitations History of Present Illness HPI Narrative: Patient presents today complaining of right lower quadrant abdominal pain, urinary frequency and urgency. Symptoms began around 2:00 a.m. this morning. Denies fever, back pain, nausea or vomiting, sweats or chills. LMP was last week. History of appendectomy. She is currently on oral control. No [id number] treatment prior to arrival. Currently rates her pain a 06/15 Related Data Home Medications Medication Instructions Recorded Confirmed norgestimate-ethinyl estradiol 1 tablet PO DAILY 09/11/19 09/20/23 0.18 mg/0.215mg/0.25mg-35 mcg(28)tablet (Tri Femynor) Allergies Allergy/AdvReac Type Severity Reaction Status Date / Time adhesive Allergy Unknown RASH Verified 09/20/23 09:00 Review of Systems Review of Systems: CONSTITUTIONAL: Denies body aches, fever, chills, or sweats. EYES: Denies visual changes, redness, or discharge. ENT: Denies rhinorrhea, congestion, sore throat, or otalgia. CARDIOVASCULAR: Denies chest pain, palpitations, or edema. RESPIRATORY: Denies cough or dyspnea. GASTROINTESTINAL: Denies nausea, vomiting, or diarrhea.+ right lower quadrant abdominal pain GENITOURINARY: Denies dysuria or hematuria.+ frequency, urgency SKIN: Denies rash, itching, or wounds. MUSCULOSKELETAL: Denies back pain, joint pain, or myalgia. NEUROLOGIC: Denies headache, numbness, tingling, or weakness. PSYCH: Denies depression or anxiety. [facility] Past Medical History Medical History Anxiety Attention deficit disorder (ADD) in adult Cholecystitis with cholelithiasis Gestational diabetes (~2017) Hyperlipidemia Irritable bowel syndrome with diarrhea Vitamin D deficiency Surgical History Surgical History History of laparoscopic cholecystectomy (~07/2022) 07/31/2022 Hx of appendectomy (~2017) Hx of section (~2016) x2 2015, 2018 Family History Family History Father Cerebrovascular accident Diabetes mellitus Other Alcoholism aunt Diabetes mellitus aunt and uncle Anxiety and depression aunt Grandparent Cancer Social History Social History Social History: Lives with and 2 children, ages 2 and 4. 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 Please see nursing chart for further information. There is no relevant family history pertinent to the presenting complaint Exam Narrative: GENERAL: Well-appearing, well-nourished, and in no acute distress. HEAD: Normocephalic, atraumatic. EYES: EOMI. No redness or drainage. Conjunctivae normal. ENT: Mucous membranes pink and moist. NECK: Normal AR
== END 2023-09-20 09:23 | disposition home or self-care (01) ==
PROVIDERS: Emergency Provider Nurse Practitioner
DX: N30.01 Acute cystitis with hematuria (principal); E78.5 Hyperlipidemia, unspecified; F98.8 Other specified behavioral and emotional disorders with onset usually occurring in childhood and adolescence; F41.9 Anxiety disorder, unspecified
CPT/HCPCS: 81003; 87086; 99213; G0463

== ENCOUNTER 2024-03-30 11:06 | Emergency (ER) | payer BC, SELFPAY ==
[2024-03-30 11:26] VITALS: BP 120/92; PULSE 110; RESP 16; TEMP 36.7; O2SAT 99
--- NOTE | 2024-03-30 11:33 | ED.URI ---
HPI - URI/Sore Throat General Chief Complaint: Upper Respiratory Infection Stated Complaint: Strep Symptoms Time Seen by Provider: 03/30/24 11:26 Source: patient and RN notes reviewed Mode of arrival: ambulatory Limitations: no limitations History of Present Illness HPI Narrative: Patient presents today complaining of sore throat and fatigue since yesterday. Denies fever or any additional symptoms. Currently rates her sore throat 5/10 and has been taking some ibuprofen without relief. Daughter sick with similar symptoms. Related Data Home Medications ?Medication ?Instructions ?Recorded ?Confirmed ?Last Taken ?Type norgestimate-ethinyl estradiol 1 tablet PO DAILY 09/11/19 03/30/24 Unknown History 0.18 mg/0.215mg/0.25mg-35 mcg(28)tablet (Tri Femynor) Allergies Allergy/AdvReac Type Severity Reaction Status Date / Time adhesive Allergy Unknown RASH Verified 03/30/24 11:20 Review of Systems Review of Systems: CONSTITUTIONAL: Denies body aches, fever, chills, or sweats.+ fatigue EYES: Denies visual changes, redness, or discharge. ENT: Denies rhinorrhea, congestion, or otalgia.+ sore throat CARDIOVASCULAR: Denies chest pain, palpitations, or edema. RESPIRATORY: Denies cough or dyspnea. GASTROINTESTINAL: Denies abdominal pain, nausea, vomiting, or diarrhea. GENITOURINARY: Denies dysuria or hematuria. SKIN: Denies rash, itching, or wounds. MUSCULOSKELETAL: Denies back pain, joint pain, or myalgia. NEUROLOGIC: Denies headache, numbness, tingling, or weakness. PSYCH: Denies depression or anxiety. [facility] Past Medical History Medical History Irritable bowel syndrome with diarrhea Anxiety Cholecystitis with cholelithiasis Gestational diabetes (~2018) Hyperlipidemia Attention deficit disorder (ADD) in adult Vitamin D deficiency Surgical History Surgical History History of laparoscopic cholecystectomy (~07/2022) 07/31/2022 Hx of appendectomy (~2016) Hx of section (~2015) x2 2015, 2018 Family History Family History Father Cerebrovascular accident Diabetes mellitus Other Alcoholism aunt Diabetes mellitus aunt and uncle Anxiety and depression aunt Grandparent Cancer Social History Social History Social History: Lives with and 2 children, ages 2 and 4. 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 Please see nursing chart for further information. There is no relevant family history pertinent to the presenting complaint Exam Narrative: GENERAL: Well-appearing, well-nourished, and in no acute distress. HEAD: Normocephalic, atraumatic. EYES: EOMI. No redness or drainage. Conjunctivae normal. ENT: Mucous membranes pink and moist. Nares clear. No rhinorrhea. TMs normal bilaterally. Throat very mildly erythematous without edema or exudate. Uvula midline. NECK: Normal AROM. Supple. No lymphadenopathy. CHEST: No respiratory distress. Clear to auscultation. HEART: Regular rhythm. + tachycardia. No murmur appreciated. EXTREMITIES: Normal range of motion. No edema. SKIN: Warm, dry, no rash. Capillary refill normal. Normal skin turgor. NEURO: No focal deficits. Alert and oriented x3. Gait steady. PSYCH: Normal affect. No signs of depression or anxiety. Course Course Level of Care: Express Care Visit Vital Signs Vital signs: Vital Signs Temperature 98.1 F 03/30/24 11:26 Pulse Rate 110 H 03/30/24 11:26 Respiratory Rate 16 03/30/24 11:26 Blood Pressure 120/92 H 03/30/24 11:26 Pulse Oximetry 99 03/30/24 11:26 Temperature 98.1 F 03/30/24 11:26 Pulse Rate 110 H 03/30/24 11:26 Respiratory Rate 16 03/30/24 11:26 Blood Pressure 120/92 H 03/30/24 11:26 Pulse Oximetry 99 03/30/24 11:26 Reviewed MDM - URI/Sore Throat MDM Narrative Medical decision making narrative: Rapid strep negative. Culture pending. Symptoms likely viral in etiology. Discussed [id number] medication use and duration of illness. No prescription medications indicated at this time. Anticipatory guidance given. Differential Diagnosis Differential diagnosis: Likely upper respiratory infection, viral infection, pharyngitis and other (Strep throat) Lab Data Attestation: I reviewed the patient's lab results. Lab results narrative: Rapid strep negative Labs: Lab Results 03/30/24 Range/Units 11:46 POC Grp A Strep Screen Negative (Negative) Critical Care Time Critical Care Time Critical Care Time: No Discharge Plan Discharge Clinical Impression: Pharyngitis Qualifiers: Pharyngitis/tonsillitis etiology: unspecified etiology Qualified Code(s): J02.9 - Acute pharyngitis, unspecified Patient Disposition: Home, Self-Care Condition: Stable Instructions: Pharyngitis (ED) Additional Instructions: Your rapid strep swab was negative today at [facility]. You will be notified in a few days if the culture comes back positive for strep, and appropriate antibiotics will be called in for you at that time. Your symptoms are likely due to a viral illness, which is not treated with antibiotics. Viral symptoms can be present for up to 7-10 days. Take Tylenol or ibuprofen for fever or pain. Rest and stay hydrated. Follow up with your PCP in 7-10 days if symptoms are not improving. Go to the ER immediately if you have any difficulty breathing or swallowing. Your blood pressure was elevated above 120/80 today at Urgent Care. This puts you above the threshold for follow up. Please schedule a followup visit with your personal physician as soon as possible, for further evaluation and treatment. Even blood pressure exceeding 120/80 may indicate pre-hypertension. Patient Language: Khmer Prescriptions: No Action norgestimate-ethinyl estradiol [Tri Femynor] 0.18/0.215/0.25 mg-35 mcg (28) tablet 1 tablet PO DAILY fluoxetine 20 mg capsule 20 mg PO DAILY Qty: 90 2RF dextroamphetamine-amphetamine [Adderall XR] 30 mg capsule,extended release 24hr 30 mg PO DAILY Qty: 30 0RF Follow-up/Referrals: PHYSICIAN,MANDARIN SPEAKING NANNY [Primary Care Provider] - Time of Disposition: 11:36
[2024-03-30 11:47] LABS: EDSTREPNEGPOS1 Negative (Negative)
== END 2024-03-30 11:49 | disposition home or self-care (01) ==
PROVIDERS: Emergency Provider Nurse Practitioner
DX: J02.9 Acute pharyngitis, unspecified (principal); E78.5 Hyperlipidemia, unspecified
CPT/HCPCS: 87081; 87880; 99213; G0463

== ENCOUNTER 2024-11-03 10:10 | Outpatient (CLI) | payer BC, SELFPAY ==
--- NOTE | ~2024-11-03 | MMUS_ITS ---
EXAMINATION: MM diagnostic lottie BI w arian, US breast RT limited INDICATION: 38-year old female; Presents for evaluation of right nipple crustiness for about 8 weeks. No palpable lumps COMPARISON: Baseline TECHNIQUE: Digital breast tomosynthesis MLO and CC views of both breasts and ML and spot compression CC and ML views of Right breast were obtained with computer-aided detection to assist in interpretation of the study. FINDINGS: The breasts are heterogeneously dense, which may obscure small masses. A spiculated mass containing pleomorphic calcifications persists in the superior central, 12:00 at posterior third location in the right breast. The abnormal calcifications in this mass and beyond spans 5.8 cm in largest length. There is an additional group of pleomorphic calcifications that spans 1.4 cm associated with background focal asymmetry in superior lateral at posterior third within the right breast. This lesion is located approximately 2.2 cm lateral to the index spiculated mass described above. In addition, regional pleomorphic calcifications that spans 3.2 cm is seen in the superior central at anterior third from the index spiculated lesion described above by approximately 1.4 cm. There are no focal dominant mass, architectural distortion or suspicious microcalcifications identified in the left breast. RIGHT BREAST ULTRASOUND FINDINGS: Targeted sonographic evaluation of the areas of concern on the mammogram was completed. At 12:00, 5 cm from the nipple there is an hypoechoic mass the measure 2.7 cm in largest dimension, with irregular margins and internal vascularity which correlates to a mammographic finding. No sonographic correlate to the other areas of concern on the mammogram in the superior central and superior lateral locations. There is a 0.6 cm simple cyst seen at 9:00, 4 cm from the nipple. IMPRESSION: 1. Highly suspicious RIGHT breast 2.7 cm mass at 12:00, 5 cm from the nipple location that correlates to mammography finding. Pleomorphic calcifications associated with this mass spans approximately 5.8 cm in largest dimension. Recommend biopsy. 2. Additional Right breast 2 separate sites of pleomorphic calcifications in the superior lateral and superior central location respectively. Biopsy recommended of both sites. RECOMMENDATIONS: 1. Ultrasound-guided core needle biopsy of right breast mass at 12:00, 5 cm from the nipple. 2. Stereotactic core needle biopsy of abnormal calcifications in the Right breast superior lateral and superior central locations. 3. Bilateral breast MRI to assess extent of disease and evaluate for contralateral involvement. I discussed with the patient the findings and recommendations for biopsy and breast MRI prior to leaving the department. BI-RADS 5, HIGHLY SUSPICIOUS FOR MALIGNANCY Reviewed, dictated and finalized at location B. IMPRESSION: 1. Highly suspicious RIGHT breast 2.7 cm mass at 12:00, 5 cm from the nipple l ocation that correlates to mammography finding. Pleomorphic calcifications asso ciated with this mass spans approximately 5.8 cm in largest dimension. Recommen d biopsy. 2. Additional Right breast 2 separate sites of pleomorphic calcifications in t he superior lateral and superior central location respectively. Biopsy recommen ded of both sites. RECOMMENDATIONS: 1. Ultrasound-guided core needle biopsy of right breast mass at 12:00, 5 cm fro m the nipple. 2. Stereotactic core needle biopsy of abnormal calcifications in the Right mehrdad st superior lateral and superior central locations. 3. Bilateral breast MRI to assess extent of disease and evaluate for contralate ral involvement. I discussed with the patient the findings and recommendations for biopsy and br east MRI prior to leaving the department. BI-RADS 5, HIGHLY SUSPICIOUS FOR MALIGNANCY
--- OUTSIDE RECORDS SUMMARY | 2024-11-03 10:26 | XMS_ITS | Clinical Summary ---
Author Organization [address] Address [address] [place] [phone] Care Team Providers Care Violent Crimes Detective Name Role Phone Winnie Brown MD Primary Care Provider Allergies No known active allergies Medications FLUoxetine (PROzac) 20 mg capsule Take 1 capsule (20 mg total) by mouth daily Active dextroamphetami ne-amphetamine XR (ADDERALL XR) 30 mg 24 hr capsule Take 1 capsule (30 mg total) by mouth every morning Active norgestimate-et hinyl estradioL (ORTHO-CYCLEN) 0.25-0.035 mg per tablet Take 1 tablet by mouth daily Active Active Problems Problem Noted Date Diagnosed Date Previous section 02/04/2017 Attention deficit disorder (ADD) without hyperac tivity 07/22/2013 Overview (06/10/2016): ADD (attention deficit disorder) Mixed anxiety depressive disorder 07/22/2013 Overview (06/12/2016): Anxiety and depression Encounters Date Type Department Care Team Description 10/27/2024 Telephone [facility] Orthopedics and Sports Medicine [address] [place] [phone] Rocky Cherry DO 10/24/2024 11:45 AM CDT Office Visit [facility] at [address] [phone] Rocky Cherry DO Gastrocnemius tendon tear, right, subsequent encounter (Primary Dx); Injury of right lower extremity, initial encounter 09/18/2024 3:00 PM CDT Office Visit [facility] at [address] [place] [phone] Rocky Cherry DO Gastrocnemius tendon tear, right, initial encounter (Primary Dx) 08/31/2024 Results Follow-Up [facility] at [address] [phone] Sonia Kee, FOREST ENGINEER XR Tibia Fibula Right 2 Views 08/30/2024 10:20 AM CDT Ancillary Procedure [facility] at [address] [phone] Injury of right lower extremity, initial encounter 08/30/2024 10:00 AM CDT Office Visit [facility] at [address] [phone] Krista Davenport PA Injury of right lower extremity, initial encounter (Primary Dx) from Last 3 Months Immunizations Immunization Administration Dates Next Due HPV, Quadrivalent 10/11/2007,06/07/2007,04/07/19 08 Hep B Vaccine 11/25/1998,06/28/1998,05/27/1998 Influenza, Split 02/07/2013 MMR 08/09/1992,02/11/1989 Td, adsorbed 08/06/2001,06/28/1998 Tdap 02/07/2013 Family History Medical History Relation Name Comments Diabetes type II Mother's Sister 2 Diabet es -Type 2; Other Other 1 Family history of Mental Illness -obsessive-compulsive disorder; Other Other 2 Family history of Mental Illness -anxiety; Thyroid disease Other 3 Family histo ry of Thyroid disorder; Hyperlipidemia Other 4 Hyperlipidemi a; Congenital heart disease Sister Con genital heart disease; Relation Name Status Comments Mother's Sister 1 Alive Mother's Sister 2 Other 1 Other 2 Other 3 Other 4 Sister Social History Tobacco Use Types Packs/Day Years Used Date Smoking Tobacco: Never Tobacco Cessation:Counseling Given: Not Answered Alcohol Use Standard Drinks/Week Comments Yes 0 (1 standard drink = 0.6 oz pur e alcohol) Comments Unknown Sex and Gender Information Value Date Recorded Sex Assigned at Not on file Legal Sex Female 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 Gender Identity Not on file Sexual Orientation Not on file Obstetrics History Last Filed Vital Signs Vital Sign Reading Time Taken Comments Blood Pressure 115/83 10/24/2024 11:47 AM CDT Pulse 80 10/24/2024 11:47 AM CDT Temperature 37 C (98.6 F) 08/30/2024 10:05 AM CDT Respiratory Rate 18 08/30/2024 10:0 5 AM CDT Oxygen Saturation 98% 08/30/2024 10: 05 AM CDT Inhaled Oxygen Concentration - - Weight 75.2 kg (165 lb 11.2 oz) 09/18/2024 3:11 PM CDT Height 162.6 cm (5' 4) 10/24/2024 11:4 7 AM CDT Body Mass Index 28.44 09/18/2024 3:11 PM CDT Plan of Treatment Health Maintenance Due Date Last Done Comments Cervical Cancer Screening 1987 Depression Screening 1987 Hepatitis C Screening 1987 Varicella Vaccines (1 of 2 - 13+ 2-dose series) 11/04/2000 Regular Well Visit/Exam 18-64 11/04/2005 Covid-19 Vaccine ( season) 2023 08/22/2020, 07/25/2020 Influenza Vaccine (#1) 2024 9, 01/05/2017, 12/30/2014, Additional history exists DTaP/Tdap/Td Vaccine (5 - Td or Tdap) 04/28/2027 04/28/2017, 04/19/2015, 02/07/2013, Additional history exists Hepatitis B Screening Completed 11/25/1998 , 06/28/1998, 05/27/1998 HPV Vaccines Completed 10/11/2007, 0403/2007, 04/07/2007 Pneumococcal vaccine <65 Aged Out No longer eligible based on patient's age to complete this topic Procedures Procedure Name Priority Date/Time Associated Diagnosis Comments XR TIBIA FIBULA RIGHT2 VIEWS Schedule KWASI, Read KWASI (Appt Today, Awaiting Results) 08/30/2024 10:58 AM CDT Injury of right lower extremity, initial encounter from Last 3 Months Results * XR Tibia Fibula Right 2 Views (08/30/2024 10:58 AM CDT) Anatomical Region Laterality Modality Lower Extremities, Lower Leg Right Dig ital Radiography 08/30/2024 11:5 1 PM CDT Narrative 08/30/2024 11:52 PM CDT EXAM DESCRIPTION: XR TIBIA FIBULA RIGHT2 VIEWS REASON FOR STUDY: calf injury Pt complains of right calf pain after a fall x 3 weeks ago. No prior fx or surgery TECHNIQUE: There are 2 radiographic view(s) of the right tibia and fibula . COMPARISON: No prior FINDINGS: Normal mineralization. No acute fracture or dislocation. 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 Soft tissues are unremarkable. IMPRESSION: 1. No acute fracture. 2. 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 THIS IS AN ELECTRONICALLY VERIFIED FINAL REPORT 08/30/2024 11:52 PM - Electronically signed by Rocky LUNDBERG T: Report ID: [id number] Reading Location: [id number] Procedure Note Rocky Agarwal MD - 08/30/2024 EXAM DESCRIPTION: XR TIBIA FIBULA RIGHT2 VIEWS REASON FOR STUDY: calf injury Pt complains of right calf pain after a fall x 3 weeks ago. No prior fx or surgery TECHNIQUE: There are 2 radiographic view(s) of the right tibia andfibula . COMPARISON: No prior FINDINGS: Normal mineralization. No acute fracture or dislocation.Trivial osteoarthritis medial compartment of the knee. Soft tissues areunremarkable. IMPRESSION: 1. No acute fracture. 2. 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 THIS IS AN ELECTRONICALLY VERIFIED FINAL REPORT 08/30/2024 11:52 PM - Electronically signed by Rocky LUNDBERG T: Report ID: [id number] Reading Location: [id number] Krista RAZO IMG XR PROCEDURES Final Result from Last [address] Care Teams Violent Crimes Detective Relationship Specialty Start Date End Date Winnie Brown MD [address] [address] [place] [address] PCP - General Family Practice 08/30/24
--- OUTSIDE RECORDS SUMMARY | 2024-11-03 10:26 | XMS_ITS | Clinical Summary ---
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 Patient is seen by Mally Ramirez NP at [facility] [place] [place] [facility]. 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
== END 2024-11-03 10:11 | disposition home or self-care (01) ==
LOC: ANHFOHIMG 10:21
PROVIDERS: PCP Family Medicine; Visit Provider Nurse Practitioner
DX: N63.11 Unspecified lump in the right breast, upper outer quadrant (principal)
CPT/HCPCS: 76642; 77062; 77066; G0279